=== PATIENT | male | born 1965 | race Caucasian/White ===

== ENCOUNTER 2025-02-05 11:44 | Emergency (ER) | payer OTHER ==
[2025-02-05] MEDS: Lidocaine 1% 5 ML VIAL INJECT ONE (12:40)
[2025-02-05] MEDS: Bacitracin Oint 1 GM U/D Packet TOP ONE (13:00)
[2025-02-05] MEDS: cefTRIAXone 1 GM Vial IM ONE ×2 (13:10→14:29)
== END 2025-02-05 13:15 | disposition home or self-care (01) ==
LOC: LB.ED 11:44
DX: S91.214A Laceration without foreign body of right lesser toe(s) with damage to nail, initial encounter (principal); Z79.51 Long term (current) use of inhaled steroids; Z79.899 Other long term (current) drug therapy; W22.8XXA Striking against or struck by other objects, initial encounter; Y93.89 Activity, other specified
CPT/HCPCS: 12002; 73660-T9; 96372; 99283; J0696; J2003

== ENCOUNTER 2025-07-21 12:53 | Emergency (ER) | payer OTHER ==
[2025-07-21] MEDS: Lidocaine 1% with EPINEPHrine 1:100,000 20 ML MDV INJECT ONE (13:17)
== END 2025-07-21 13:35 | disposition home or self-care (01) ==
LOC: LB.ED 12:53
DX: S81.812A Laceration without foreign body, left lower leg, initial encounter (principal); I10 Essential (primary) hypertension; E78.00 Pure hypercholesterolemia, unspecified; Z79.899 Other long term (current) drug therapy; W10.9XXA Fall (on) (from) unspecified stairs and steps, initial encounter
CPT/HCPCS: 12002; 99282; J2004